=== PATIENT | male | born 1985 | race American Indian/Alaskan Native ===

== ENCOUNTER 2019-12-09 14:46 | Emergency (ER) | payer OTHER ==
--- NOTE | 2019-12-09 15:04 | Event Note ---
ED Screening Note ED Screening Note: tested pos for covid at [facility] here for worsening sob This initial assessment/diagnostic orders/clinical plan/treatment(s) is/are subject to change based on patients health status, clinical progression and re- assessment by fellow clinical providers in the ED. Further treatment and workup at subsequent clinical providers discretion. Patient/guardian urged not to elope from the ED as their condition may be serious if not clinically assessed and managed. Initial orders include: covid work up
[2019-12-09] MEDS ORDERED: SODIUM CHLORIDE 0.9% 1000 ML IV SOLN IV ONE (15:09)
[2019-12-09] MEDS ORDERED: AZITHROMYCIN 500 MG in SODIUM CHLORIDE 0.9% 250ML 250 ML IV ONE (15:30)
[2019-12-09 15:31] LABS: Hematocrit 41.6 % (35.5-45.6); Hemoglobin 14.8 gm/dl (11.8-15.2); Mean Corpuscular HGB Conc 36 % (32-34); Mean Corpuscular Volume 88 fl (84-94); Platelet Count 339 K/mm3 (140-440); Red Blood Count 4.74 M/mm3 (3.65-5.03); Red Cell Distribution Width 13.2 % (13.2-15.2)
[2019-12-09 15:56] LABS: Alanine Aminotransferase 32 units/L (7-56); Albumin 3.7 g/dL (3.9-5); BUN/Creatinine Ratio 7; Blood Urea Nitrogen 8 mg/dL (9-20); Hemolysis Index 10
[2019-12-09 15:57] LABS: C-Reactive Protein 10.9 mg/dL (0.00-1.30)
--- NOTE | 2019-12-09 16:21 | XRay Report ---
CHEST 1 VIEW 12/09/2019 3:15 PM INDICATION / CLINICAL INFORMATION: Shortness of breath. COMPARISON: None available. FINDINGS: SUPPORT DEVICES: None. HEART / MEDIASTINUM: No significant abnormality. LUNGS / PLEURA: No significant pulmonary or pleural abnormality. No pneumothorax. ADDITIONAL FINDINGS: No significant additional findings. IMPRESSION: 1. No acute findings. Signer Name: Chacorta Dong MD Signed: 12/09/2019 4:17 PM Workstation Name: [id number]
[2019-12-09] MEDS ORDERED: ACETAMINOPHEN 325 MG TAB PO ONE (16:43)
[2019-12-09] MEDS ORDERED: IPRATROPIUM/ALBUTEROL SULFATE 3 ML AMPUL.NEB IH ONE (16:56)
[2019-12-09] MEDS ORDERED: dexAMETHasone 20 MG/5 ML VIAL IV ONE (16:56)
--- NOTE | 2019-12-09 16:59 | Emergency Department Report ---
ED Shortness of Breath HPI - General Chief Complaint: Dyspnea/Respdistress Stated Complaint: SOB Time Seen by Provider: 12/09/19 15:02 Source: patient Mode of arrival: Ambulatory Limitations: No Limitations - History of Present Illness Initial Comments: 34-year-old male with a past medical history of obesity and asthma with no previous intubation presents to the hospital complaining of shortness of breath x2 days and positive COVID test last week. Patient had a positive COVID test performed at [facility] on December 01. He has had intermittent fevers, nausea, vomiting, and diarrhea. Vomiting has resolved but mild diarrhea persists. For the past 2 days he has been having dyspnea at rest and exertion with increased wheezing. Positive cough productive of yellow sputum. Patient has also lost sense of taste and smell patient does not smoke cigarettes Room air saturation 94% - Related Data Allergies Allergy/AdvReac Type Severity Reaction Status Date / Time No Known Allergies Allergy Unverified 12/09/19 15:06 ED Review of Systems ROS: Stated complaint: SOB Other details as noted in HPI Comment: All other systems reviewed and negative ED Past Medical Hx - Past Medical History Previous Medical History?: No - Surgical History Past Surgical History?: No - Social History Smoking Status: Unknown if ever smoked ED Physical Exam - General Limitations: No Limitations - Other Other exam information: General: No acute distress Head: Atraumatic Eyes: normal appearance ENT: Moist mucous membranes Neck: Normal appearance, no midline tenderness Chest: Mild expiratory wheezing on the left lung field CV: Mild tachycardia regular rhythm Abdomen: Soft, normal bowel sounds, nontender, nondistended, no rebound or guarding Back: Normal inspection Extremity: Normal inspection, full range of motion, no edema Neuro: Alert O x 3, no facial asymmetry, speech clear, no gross motor sensory deficit Psych: Appropriate behavior Skin: No rash ED Course Vital Signs 12/09/19 12/09/19 12/09/19 15:12 16:39 16:45 Temperature 100.2 F H Pulse Rate 120 H 103 H Pulse Rate [ Anterior Bilateral Throughout] Respiratory 20 15 Rate Respiratory Rate [Anterior Bilateral Throughout] Blood Pressure 130/78 Blood Pressure 109/80 [Left] O2 Sat by Pulse 96 95 96 Oximetry 12/09/19 12/09/19 12/09/19 17:01 17:15 17:31 Temperature Pulse Rate 89 96 H 100 H Pulse Rate [ 112 H Anterior Bilateral Throughout] Respiratory 18 19 19 Rate Respiratory 24 Rate [Anterior Bilateral Throughout] Blood Pressure 130/78 130/78 130/78 Blood Pressure [Left] O2 Sat by Pulse 96 95 93 Oximetry 12/09/19 12/09/19 12/09/19 17:45 18:09 20:25 Temperature 98.2 F Pulse Rate 101 H 110 H 101 H Pulse Rate [ Anterior Bilateral Throughout] Respiratory 21 18 24 Rate Respiratory Rate [Anterior Bilateral Throughout] Blood Pressure 130/78 130/78 Blood Pressure 131/88 [Left] O2 Sat by Pulse 95 96 94 Oximetry - Reevaluation(s) Reevaluation #1: 12/09/19 21:09 Patient was informed that he will be admitted to the hospital prior to placing admission orders for then at this time I was performed with nurse that patient received Rocephin and did not want to be admitted. I immediately got up to speak to the patient. He has taken himself off the monitor and left the room and is not in the neighboring bathroom. I suspect that he eloped but will check back with nurse to see if he returns prior to signing out AMA. 12/09/19 21:49 Nurse informed me that patient did not return. PD has been notified since he eloped with IV in place ED Medical Decision Making - Lab Data Result diagrams: 12/09/19 15:19 12/09/19 15:19 Lab Results 12/09/19 12/09/19 12/09/19 Range/Units 15:19 15:19 15:19 WBC 10.5 (4.5-11.0) K/mm3 RBC 4.74 (3.65-5.03) M/mm3 Hgb 14.8 (11.8-15.2) gm/dl Hct 41.6 (35.5-45.6) % MCV 88 (84-94) fl MCH 31 (28-32) pg MCHC 36 H (32-34) % RDW 13.2 (13.2-15.2) % Plt Count 339 (140-440) K/mm3 D-Dimer 364.22 H (0-234) ng/mlDDU Sodium (137-145) mmol/L Potassium (3.6-5.0) mmol/L Chloride (98-107) mmol/L Carbon Dioxide (22-30) mmol/L Anion Gap mmol/L BUN (9-20) mg/dL Creatinine (0.8-1.5) mg/dL Estimated GFR ml/min BUN/Creatinine Ratio % Glucose 107 H (75-100) mg/dL Lactic Acid (0.7-2.0) mmol/L Calcium (8.4-10.2) mg/dL Total Bilirubin (0.1-1.2) mg/dL AST (5-40) units/L ALT (7-56) units/L Alkaline Phosphatase (35-129) units/L Lactate Dehydrogenase 363 H (91-180) units/L Troponin T (0.00-0.029) ng/mL C-Reactive Protein 10.90 H (0.00-1.30) mg/dL Total Protein (6.3-8.2) g/dL Albumin (3.9-5) g/dL Albumin/Globulin Ratio % 12/09/19 12/09/19 12/09/19 Range/Units 15:19 15:19 15:25 WBC (4.5-11.0) K/mm3 RBC (3.65-5.03) M/mm3 Hgb (11.8-15.2) gm/dl Hct (35.5-45.6) % MCV (84-94) fl MCH (28-32) pg MCHC (32-34) % RDW (13.2-15.2) % Plt Count (140-440) K/mm3 D-Dimer (0-234) ng/mlDDU Sodium 136 L (137-145) mmol/L Potassium 4.4 (3.6-5.0) mmol/L Chloride 98.0 (98-107) mmol/L Carbon Dioxide 23 (22-30) mmol/L Anion Gap 19 mmol/L BUN 8 L (9-20) mg/dL Creatinine 1.2 (0.8-1.5) mg/dL Estimated GFR > 60 ml/min BUN/Creatinine Ratio 7 % Glucose 103 H (75-100) mg/dL Lactic Acid 1.50 (0.7-2.0) mmol/L Calcium 9.0 (8.4-10.2) mg/dL Total Bilirubin 0.30 (0.1-1.2) mg/dL AST 31 (5-40) units/L ALT 32 (7-56) units/L Alkaline Phosphatase 72 (35-129) units/L Lactate Dehydrogenase (91-180) units/L Troponin T < 0.010 (0.00-0.029) ng/mL C-Reactive Protein (0.00-1.30) mg/dL Total Protein 8.0 (6.3-8.2) g/dL Albumin 3.7 L (3.9-5) g/dL Albumin/Globulin Ratio 0.9 % - Radiology Data Radiology results: report reviewed CHEST 1 VIEW 12/09/2019 3:15 PM INDICATION / CLINICAL INFORMATION: Shortness of breath. COMPARISON: None available. FINDINGS: SUPPORT DEVICES: None. HEART / MEDIASTINUM: No significant abnormality. LUNGS / PLEURA: No significant pulmonary or pleural abnormality. No pneumothorax. ADDITIONAL FINDINGS: No significant additional findings. IMPRESSION: 1. No acute findings. CT ANGIOGRAPHY OF THE CHEST WITH INTRAVENOUS CONTRAST AND MULTIPLANAR MIP RECONSTRUCTIONS INDICATION / CLINICAL INFORMATION: Shortness of breath and elevated d-dimer. Positive COVID-19 test TECHNIQUE: Axial CT images were obtained after injection of 100 cc Omnipaque 350 IV contrast using CTA protocol. 3 plane MIP / 3D reconstructions were produced. All CT scans at this location are performed using CT dose reduction for ALARA by means of automated exposure control. COMPARISON: None available. FINDINGS: There is adequate opacification of the pulmonary arterial system bilaterally without intraluminal filling defect suggest acute PTE. The thoracic aorta is normal in caliber without dissection. The visualized coronary vessels are unremarkable. The tracheobronchial tree is normal. There is moderate patchy multifocal groundglass parenchymal disease and consolidation throughout both lungs. Disease is both peripheral and bronchovascular in distribution. There are several clustered perifissural lymph nodes along the plane of the right minor fissure. No pleural effusion. No adenopathy. The visualized upper abdomen is normal. No acute osseous abnormality is identified. IMPRESSION: 1. No evidence of acute PTE. 2. Moderate patchy groundglass parenchymal disease and consolidation throughout both lungs. Atypical causes of pneumonia, including viral pneumonia should be considered. - Medical Decision Making Patient has a recent positive COVID test, atypical pneumonia, shortness of breath, morbid obesity, and asthma and therefore will be admitted to the hospital for further treatment. O2 sat 94% with ambulation however, patient is noticeably short of breath during exertion. pt received azithromycin, rocephin, 1 duoneb and decadron in ed Critical Care Time: No Critical care attestation.: If time is entered above; I have spent that time in minutes in the direct care of this critically ill patient, excluding procedure time. ED Disposition Clinical Impression: COVID-19 virus infection, Atypical pneumonia, SOB (shortness of breath), Asthma Disposition: ELOPED Is pt being admited?: Yes Condition: Stable Time of Disposition: 20:50 (Dr Miller/hospitalist)
--- NOTE | 2019-12-09 18:31 | Cat Scan Report ---
CT ANGIOGRAPHY OF THE CHEST WITH INTRAVENOUS CONTRAST AND MULTIPLANAR MIP RECONSTRUCTIONS INDICATION / CLINICAL INFORMATION: Shortness of breath and elevated d-dimer. Positive COVID-19 test TECHNIQUE: Axial CT images were obtained after injection of 100 cc Omnipaque 350 IV contrast using CTA protocol. 3 plane MIP / 3D reconstructions were produced. All CT scans at this location are performed using CT dose reduction for ALARA by means of automated exposure control. COMPARISON: None available. FINDINGS: There is adequate opacification of the pulmonary arterial system bilaterally without intraluminal vinay ling defect suggest acute PTE. The thoracic aorta is normal in caliber without dissection. The visual ized coronary vessels are unremarkable. The tracheobronchial tree is normal. There is moderate patchy multifocal groundglass parenchymal dise ase and consolidation throughout both lungs. Disease is both peripheral and bronchovascular in distri bution. There are several clustered perifissural lymph nodes along the plane of the right minor fissu re. No pleural effusion. No adenopathy. The visualized upper abdomen is normal. No acute osseous abnormality is identified. IMPRESSION: 1. No evidence of acute PTE. 2. Moderate patchy groundglass parenchymal disease and consolidation throughout both lungs. Atypical causes of pneumonia, including viral pneumonia should be considered. Signer Name: Zac Rosales MD Signed: 12/09/2019 6:26 PM Workstation Name: [id number]
[2019-12-09 20:29] VITALS: BP 131/88
[2019-12-09] MEDS ORDERED: cefTRIAXone/NS 2 GM/100 ML 2 GM/100 ML BAG IV SCH (21:00)
== END 2019-12-09 21:05 | disposition left against medical advice (07) ==
LOC: ED 14:46 → 3A 20:50 → UNDOADMIN 20:50 → 3A 21:05 → UNDODISIN 21:52 → 3A 12-10 04:31
DX: U07.1 COVID-19 (principal); J18.9 Pneumonia, unspecified organism; R06.02 Shortness of breath; E66.01 Morbid (severe) obesity due to excess calories; J45.909 Unspecified asthma, uncomplicated
CPT/HCPCS: 36415; 71045; 71275; 80053; 82140; 82728; 82947; 83615; 84145; 84484; 85027; 85379; 86140; 87040; 94644; 96365; 96366; 96375; 99285; J0456; J0696; J1100; J7030; J7050; Q9967; 94640; G0378